=== PATIENT | male | born 1945 | race Caucasian/White ===

== ENCOUNTER → 2021-03-08 | Outpatient (CLI) | payer OTHER | LOC: KOH-I 15:09 | DX: M25.572 Pain in left ankle and joints of left foot (principal); M79.672 Pain in left foot; M19.072 Primary osteoarthritis, left ankle and foot | CPT/HCPCS: 73610; 73630 ==

== ENCOUNTER 2021-05-13 18:40 | Emergency (ER) | payer OTHER ==
[2021-05-13 19:42] LABS: HEMOGLOBIN 15.5 gm/dl (14.0-17.5); RED BLOOD COUNT 4.58 M/UL (4.20-5.50); WHITE BLOOD COUNT 5.6 K/UL (4.5-11.0)
[2021-05-13 20:09] LABS: BUN/CREATININE RATIO 23 (0-10)
== END 2021-05-14 01:38 | disposition short-term general hospital (02) ==
LOC: ER1 18:40
PROVIDERS: Family Medicine
DX: G45.9 Transient cerebral ischemic attack, unspecified (principal); I10 Essential (primary) hypertension; E78.5 Hyperlipidemia, unspecified; Z20.822 Contact with and (suspected) exposure to COVID-19; R29.700 NIHSS score 0
CPT/HCPCS: 70450; 70496; 70498; 71045; 80053; 81001; 82550; 82553; 83735; 83874; 84439; 84443; 84484; 85025; 93005; 96374; 99285; J0360; Q9967; U0002

== ENCOUNTER 2021-12-14 12:16 | Emergency (ER) | payer MEDICARE ==
[2021-12-14 12:45] LABS: HEMOGLOBIN 13.8 gm/dl (14.0-17.5); RED BLOOD COUNT 4.11 M/UL (4.20-5.50); WHITE BLOOD COUNT 6.8 K/UL (4.5-11.0)
[2021-12-14 14:24] LABS: BUN/CREATININE RATIO 25 (0-10)
== END 2021-12-14 14:41 | disposition short-term general hospital (02) ==
LOC: ER1 12:16
PROVIDERS: Emergency Medicine
DX: I63.511 Cerebral infarction due to unspecified occlusion or stenosis of right middle cerebral artery (principal); G81.90 Hemiplegia, unspecified affecting unspecified side; R29.719 NIHSS score 19; I10 Essential (primary) hypertension; Z86.73 Personal history of transient ischemic attack (TIA), and cerebral infarction without residual deficits
CPT/HCPCS: 36600; 70450; 70496; 70498; 80053; 82803; 83880; 84484; 85025; 85610; 93005; 96374; 96375; 99285; J2060; J2997; Q9967